=== PATIENT | male | born 1960 | race Asian ===

== ENCOUNTER 2017-10-25 22:34 | Emergency (ER) | payer OTHER ==
[~2017-10-25] VITALS: Ht 165.1 cm; Wt 66.2 kg
[2017-10-25 23:26] VITALS: BP 102/71
== END 2017-10-26 01:57 | disposition left against medical advice (07) ==
LOC: ED 22:34
DX: Z53.21 Procedure and treatment not carried out due to patient leaving prior to being seen by health care provider (principal)

== ENCOUNTER 2020-07-31 13:16 | Emergency (ER) | payer OTHER, SELFPAY ==
[~2020-07-31] VITALS: Ht 170.2 cm; Wt 69.9 kg
[2020-07-31 13:17] VITALS: Ht 170.2 cm; Wt 69.9 kg
[2020-07-31 14:04] LABS: BASOPHIL % 0.3 % (0.2-1.5); PLATELET COUNT 133 x10^3mcL (152-348); RED CELL DISTRIBUTION WIDTH 12.7 % (12.1-16.2)
[2020-07-31 14:15] LABS: CALCIUM 8.2 mg/dL (8.5-10.1); CARBON DIOXIDE 27.4 mmol/L (21-32); CHLORIDE SERUM 97 mmol/L (98-107); CREATININE SERUM 1.2 mg/dL (0.7-1.3); GFR1 > 60 mL/min; GLUCOSE SERUM 112 mg/dL (74-106); POTASSIUM SERUM 4.2 mmol/L (3.5-5.1); SODIUM SERUM 135 mmol/L (136-145)
[2020-07-31 14:20] LABS: ALBUMIN 3.9 g/dL (3.4-5.0); ALKALINE PHOSPHATASE 99 U/L (46-116); ALT/SGPT 156 U/L (16-63); AST/SGOT 125 U/L (15-37); BILIRUBIN TOTAL 0.4 mg/dL (0.20-1.00); LACTIC DEHYDROGENASE (LDH) 351 U/L (100-190); TOTAL PROTEIN, SERUM 7.7 g/dL (6.4-8.2)
[2020-07-31 14:50] LABS: UA SPECIFIC GRAVITY 1.015 (1.005-1.035); microscopic required? YES; urine erythrocyte TRACE (NEGATIVE)
[2020-07-31] MEDS ORDERED: MULTIPLE VITAMI1 T13 PO (18:05)
[2020-07-31] MEDS ORDERED: VITAMIN D310000 UNI1 PO (18:05)
[2020-07-31 19:10] VITALS: BP 117/72
== END 2020-07-31 19:10 | disposition home or self-care (01) ==
LOC: ED 13:16
PROVIDERS: Emergency Medicine
DX: U07.1 COVID-19 (principal); I10 Essential (primary) hypertension
CPT/HCPCS: 83880; 85378; 87804; M0239; Q0239; U0003

== ENCOUNTER 2020-08-01 16:39 | Emergency (ER) | payer OTHER ==
[~2020-08-01] VITALS: Ht 167.6 cm; Wt 68.0 kg
[~2020-08-01 16:39] MED LIST: MULTIPLE VITAMI1 T13 PO; VITAMIN D310000 UNI1 PO
[2020-08-01 16:41] VITALS: BP 162/92; Ht 167.6 cm; Wt 68.0 kg
== END 2020-08-01 17:36 | disposition home or self-care (01) ==
LOC: ED 16:39
DX: U07.1 COVID-19 (principal); I10 Essential (primary) hypertension; M10.9 Gout, unspecified